=== PATIENT | female | born 1985 | race Native Hawaiian/Other Pacific Islander ===

== ENCOUNTER 2017-07-14 18:36 | Emergency (ER) | payer OTHER ==
[~2017-07-14] VITALS: Ht 165.1 cm; Wt 83.9 kg
[2017-07-14 19:15] LABS: PLATELET COUNT 265 K/uL (152-353)
[2017-07-14 23:56] VITALS: BP 112/67; TEMP 97.8
== END 2017-07-14 23:56 | disposition short-term general hospital (02) ==
LOC: ED 18:36
PROVIDERS: Emergency Medicine
DX: O00.90 Unspecified ectopic pregnancy without intrauterine pregnancy (principal); O08.1 Delayed or excessive hemorrhage following ectopic and molar pregnancy
CPT/HCPCS: 36415; 84702; 85027; 96361; 96365; 96374; 96375; 96376; 99284; J1170; J2405; J2550

== ENCOUNTER 2017-07-14 23:56 | Outpatient (CLI) | payer OTHER | END 2017-07-15 00:32 | disposition short-term general hospital (02) | LOC: AMB 23:56 | DX: O00.90 Unspecified ectopic pregnancy without intrauterine pregnancy (principal); O08.1 Delayed or excessive hemorrhage following ectopic and molar pregnancy | CPT/HCPCS: A0425; A0427 ==

== ENCOUNTER 2017-09-09 18:24 | Outpatient (CLI) | payer OTHER | END 2017-09-09 18:37 | disposition short-term general hospital (02) | LOC: AMB 18:24 | DX: G40.802 Other epilepsy, not intractable, without status epilepticus (principal) | CPT/HCPCS: A0425; A0427 ==

== ENCOUNTER 2017-09-09 18:43 | Emergency (ER) | payer OTHER ==
[~2017-09-09] VITALS: Ht 165.1 cm; Wt 86.2 kg
[2017-09-09 19:57] LABS: PLATELET COUNT 206 K/uL (152-353)
[2017-09-09 20:02] LABS: POTASSIUM 3.6 mmol/L (3.6-5.2)
[2017-09-09 22:48] VITALS: BP 101/58; TEMP 98.2
== END 2017-09-09 22:52 | disposition home or self-care (01) ==
LOC: ED 18:43
DX: R56.9 Unspecified convulsions (principal); R10.9 Unspecified abdominal pain
CPT/HCPCS: 36415; 80048; 81000; 85027; 96365; 96374; 96376; 99284; J2405; Q9963

== ENCOUNTER 2018-01-19 19:04 | Emergency (ER) | payer OTHER ==
[~2018-01-19] VITALS: Ht 167.6 cm; Wt 96.2 kg
[2018-01-19] MEDS ORDERED: CLON1TAB18 PO (19:26)
[2018-01-19] MEDS ORDERED: LAMICTAL25 MG PO (19:26)
[2018-01-19] MEDS ORDERED: VRAYLAR1.5 MG PO (19:27)
[2018-01-19 19:44] LABS: PLATELET COUNT 249 K/uL (152-353)
[2018-01-19 19:54] LABS: POTASSIUM 3.9 mmol/L (3.6-5.2)
[2018-01-19 20:35] VITALS: BP 105/66; TEMP 98.3
== END 2018-01-19 20:37 | disposition home or self-care (01) ==
LOC: ED 19:04
DX: R10.84 Generalized abdominal pain (principal); E83.59 Other disorders of calcium metabolism
CPT/HCPCS: 36415; 80053; 81000; 85027; 96374; 99284; J2405

== ENCOUNTER 2018-03-12 18:28 | Emergency (ER) | payer OTHER ==
[~2018-03-12] VITALS: Ht 167.6 cm; Wt 90.7 kg
[2018-03-12 18:25] VITALS: BP 103/54; TEMP 98.6
[~2018-03-12 18:28] MED LIST changes: -CLON0.1T16 PO; -LAMICTAL150 MG PO
[2018-03-12 20:35] LABS: PLATELET COUNT 253 K/uL (152-353)
[2018-03-12 20:49] LABS: POTASSIUM 4.2 mmol/L (3.6-5.2); SODIUM 137 mmol/L (136-145)
== END 2018-03-12 20:40 | disposition home or self-care (01) ==
LOC: ED 18:28
PROVIDERS: Family Medicine
DX: T42.4X2A Poisoning by benzodiazepines, intentional self-harm, initial encounter (principal); T46.5X2A Poisoning by other antihypertensive drugs, intentional self-harm, initial encounter; T51.0X2A Toxic effect of ethanol, intentional self-harm, initial encounter; Y92.89 Other specified places as the place of occurrence of the external cause
CPT/HCPCS: 36415; 80053; 80307; 80320; 80329; 81000; 85027; 99285

== ENCOUNTER → 2018-03-12 | Outpatient (CLI) | payer OTHER ==
[~2018-03-12] MED LIST: CLON0.1T16 PO; CLON1TAB18 PO; LAMICTAL150 MG PO; LAMICTAL25 MG PO; VRAYLAR1.5 MG PO
== END | disposition short-term general hospital (02) ==
LOC: AMB 17:56
DX: F10.129 Alcohol abuse with intoxication, unspecified (principal)
CPT/HCPCS: A0425; A0427

== ENCOUNTER 2018-06-17 19:55 | Outpatient (CLI) | payer OTHER ==
[2018-06-17] MEDS ORDERED: CLON0.1T16 PO (20:13)
[2018-06-17] MEDS ORDERED: LAMICTAL150 MG PO (20:13)
== END 2018-06-17 20:01 | disposition short-term general hospital (02) ==
LOC: AMB 19:55
DX: G40.89 Other seizures (principal)
CPT/HCPCS: A0425; A0426

== ENCOUNTER 2018-06-17 20:05 | Emergency (ER) | payer OTHER ==
[~2018-06-17] VITALS: Ht 167.6 cm; Wt 90.7 kg
[2018-06-17] MEDS ORDERED: LAMICTAL150 MG PO (20:13)
[2018-06-17] MEDS ORDERED: CLON0.1T16 PO (20:13)
[2018-06-17 20:29] LABS: PLATELET COUNT 277 K/uL (152-353)
[2018-06-17 21:30] LABS: POTASSIUM 3.4 mmol/L (3.6-5.2)
[2018-06-17 21:37] LABS: PARTIAL THROMBOPLASTIN TIME 29.2 SECONDS (24.5-33.6)
[2018-06-17 21:52] VITALS: BP 110/60; TEMP 98.6
== END 2018-06-17 21:52 | disposition home or self-care (01) ==
LOC: ED 20:05
PROVIDERS: Family Medicine
DX: R56.9 Unspecified convulsions (principal); R51 Headache
CPT/HCPCS: 80053; 85027; 85610; 85730; 99283

== ENCOUNTER 2018-08-14 19:25 | Emergency (ER) | payer OTHER ==
[~2018-08-14] VITALS: Ht 167.6 cm; Wt 90.7 kg
[~2018-08-14 19:25] MED LIST changes: +CLON0.1T16 PO; +LAMICTAL150 MG PO
[2018-08-14 19:38] LABS: PLATELET COUNT 305 K/uL (152-353)
[2018-08-14 19:52] LABS: POTASSIUM 3.9 mmol/L (3.6-5.2)
[2018-08-15 03:44] VITALS: BP 129/76; TEMP 97.7
== END 2018-08-15 03:40 | disposition home or self-care (01) ==
LOC: ED 19:25
DX: R45.851 Suicidal ideations (principal)
CPT/HCPCS: 36415; 80053; 80307; 80320; 80329; 81000; 81025; 82550; 82553; 84484; 85027; 93005; 96372; 99285; J2060

== ENCOUNTER 2018-09-25 15:04 | Emergency (ER) | payer OTHER ==
[~2018-09-25] VITALS: Ht 167.6 cm; Wt 83.9 kg
[2018-09-25 17:47] VITALS: BP 110/68; TEMP 98
== END 2018-09-25 17:54 | disposition home or self-care (01) ==
LOC: ED 15:04
PROC: 2W3QX1Z Immobilization of Right Lower Leg using Splint (ICD-10-PCS; principal; 2018-09-25)
DX: S93.491A Sprain of other ligament of right ankle, initial encounter (principal); X50.1XXA Overexertion from prolonged static or awkward postures, initial encounter; Y92.89 Other specified places as the place of occurrence of the external cause
CPT/HCPCS: 99282; L4350

== ENCOUNTER 2018-11-04 11:34 | Emergency (ER) | payer OTHER ==
[~2018-11-04] VITALS: Ht 167.6 cm; Wt 83.9 kg
[2018-11-04 11:47] VITALS: TEMP 97.5
[2018-11-04 14:20] VITALS: BP 118/76
== END 2018-11-04 14:20 | disposition home or self-care (01) ==
LOC: ED 11:34
PROC: 2W3QX1Z Immobilization of Right Lower Leg using Splint (ICD-10-PCS; principal; 2018-11-04)
DX: S93.491A Sprain of other ligament of right ankle, initial encounter (principal); X50.1XXA Overexertion from prolonged static or awkward postures, initial encounter; Y92.89 Other specified places as the place of occurrence of the external cause
CPT/HCPCS: 99282

== ENCOUNTER 2018-11-26 18:57 | Outpatient (CLI) | payer OTHER | END 2018-11-26 19:00 | disposition short-term general hospital (02) | LOC: AMB 18:57 | DX: R10.9 Unspecified abdominal pain (principal); O20.9 Hemorrhage in early pregnancy, unspecified; Z3A.01 Less than 8 weeks gestation of pregnancy | CPT/HCPCS: A0425; A0429 ==

== ENCOUNTER 2018-11-26 19:12 | Emergency (ER) | payer OTHER ==
[~2018-11-26] VITALS: Ht 167.6 cm; Wt 79.4 kg
[2018-11-26 20:00] LABS: PLATELET COUNT 318 K/uL (152-353)
[2018-11-26 20:12] LABS: POTASSIUM 3.8 mmol/L (3.6-5.2); SODIUM 139 mmol/L (136-145)
[2018-11-26 22:20] VITALS: BP 117/72; TEMP 98.5
== END 2018-11-26 22:20 | disposition home or self-care (01) ==
LOC: ED 19:12
PROVIDERS: Emergency Medicine
DX: N20.0 Calculus of kidney (principal); N13.39 Other hydronephrosis; R10.32 Left lower quadrant pain
CPT/HCPCS: 80053; 81000; 84702; 85027; 87088; 96372; 99283; J2405